=== PATIENT | male | born 1965 | race Hispanic/Latino ===

== ENCOUNTER 2019-04-17 14:01 | Emergency (ER) | payer SELFPAY ==
[2019-04-17 14:52] LABS: Protime INR 1.27
[2019-04-17 14:56] LABS: Absolute Lymphocytes (CBC) 0.7 K/uL (0.7-4.9); Basophils % 0.3 % (0-1.3); Hematocrit 39.4 % (39.6-49.0); Lymphocytes % 9.5 % (15.3-44.8); MPV 11.1 fL (7.6-11.3); RBC Red Blood Cell Count 4.24 M/uL (4.33-5.43)
[2019-04-17 15:18] LABS: ALT/SGPT 32 U/L (12-78); AST/SGOT 38 U/L (15-37); Albumin 2.3 g/dL (3.4-5.0); Alkaline Phosphatase 141 U/L (45-117); BUN Blood Urea Nitrogen 28 mg/dL (7-18); Bicarbonate 28 mmol/L (21-32); Bilirubin Direct 4.8 mg/dL (0-0.2); Glucose Level 113 mg/dL (74-106); Magnesium 2.7 mg/dL (1.8-2.4); NT PRO-BNP 198 pg/mL (<125); Potassium 4.1 mmol/L (3.5-5.1); Protein, Total 6.9 g/dL (6.4-8.2); Sodium Level 139 mmol/L (136-145); Troponin (Emerg Dept Use Only) < 0.02 ng/mL (0.0-0.045)
[2019-04-17 15:22] LABS: Bilirubin Total 6.3 mg/dL (0.2-1.0)
--- NOTE | 2019-04-17 15:31 | RAD REPORT ---
EXAM DESCRIPTION: RAD - Chest Single View - 04/17/2019 2:56 pm CLINICAL HISTORY: Shortness of breath, left-sided chest pain COMPARISON: None. TECHNIQUE: AP portable chest image was obtained 1445 hour . FINDINGS: Lung volumes are low. No focal lung parenchymal process. No pulmonary edema. Heart and vas culature are normal. No measurable pleural effusion and no pneumothorax. No acute bony abnormality se en. No acute aortic findings suspected. IMPRESSION: No acute cardiopulmonary process.
--- NOTE | 2019-04-17 16:44 | EDPHYS ---
Physician Documentation [facility] Name: Jayy Plascencia Age: 53 yrs Sex: Male : 1965 Arrival Date: 04/17/2019 Time: 14:03 Bed 28 Private MD: ED Physician Hiren Alvarez HPI: 04/17 16:25 This 53 yrs old Male presents to ER via Ambulatory with complaints of Chest gs Pain, Shortness Of Breath. 16:27 The patient or guardian reports chest pain that is located primarily in the anterior gs chest wall, left. Onset: yesterday. The pain does not radiate. Associated signs and symptoms: Pertinent negatives: abdominal pain, cough, palpitations, vomiting. The chest pain is described as sharp. Duration: The patient or guardian reports a single episode, that is still ongoing. Modifying factors: the symptoms are aggravated by movement, palpation of area, twisting torso. Severity of pain: At its worst the pain was moderate in the emergency department the pain has improved mildly. Historical: - Allergies: 14:11 No Known Allergies; hb - Home Meds: 14:11 spironolactone 25 mg Oral tab 1 tab every 2 days [Active]; furosemide 40 mg Oral tab hb [Active]; propranolol 10 mg Oral tab [Active]; - PMHx: 14:11 Cirrhosis; hb - PSHx: 14:11 None; hb - Immunization history:: Adult Immunizations up to date. - Social history:: Smoking status: Patient/guardian denies using tobacco. - Ebola Screening: : No symptoms or risks identified at this time. ROS: 16:27 All other systems are negative. gs Exam: 16:27 Head/Face: Normocephalic, atraumatic. ENT: Nares patent. No nasal discharge, no gs septal abnormalities noted. Tympanic membranes are normal and external auditory canals are clear. Oropharynx with no redness, swelling, or masses, exudates, or evidence of obstruction, uvula midline. Mucous membranes moist. Neck: Trachea midline, no thyromegaly or masses palpated, and no cervical lymphadenopathy. Supple, full range of motion without nuchal rigidity, or vertebral point tenderness. No Meningismus. Chest/axilla: Normal chest wall appearance and motion. Nontender with no deformity. No lesions are appreciated. Cardiovascular: Regular rate and rhythm with a normal S1 and S2. No gallops, murmurs, or rubs. Normal PMI, no JVD. No pulse deficits. Respiratory: Lungs have equal breath sounds bilaterally, clear to auscultation and percussion. No rales, rhonchi or wheezes noted. No increased work of breathing, no retractions or nasal flaring. Abdomen/GI: Soft, non-tender, with normal bowel sounds. No distension or tympany. No guarding or rebound. No evidence of tenderness throughout. Back: No spinal tenderness. No costovertebral tenderness. Full range of motion. Skin: Warm, dry with normal turgor. Normal color with no rashes, no lesions, and no evidence of cellulitis. MS/ Extremity: Pulses equal, no cyanosis. Neurovascular intact. Full, normal range of motion. Neuro: Awake and alert, GCS 15, oriented to person, place, time, and situation. Cranial nerves II-XII grossly intact. Motor strength 5/5 in all extremities. Sensory grossly intact. Cerebellar exam normal. Normal gait. 16:27 Constitutional: The patient appears alert, awake. 16:27 Eyes: Sclera: icterus. 16:27 ECG was reviewed by the Attending Physician. Vital Signs: 14:11 BP 109 / 81; Pulse 89; Resp 16; Temp 97.8; Pulse Ox 98% on R/A; Weight 95.25 kg; Height hb 5 ft. 8 in. (172.72 cm); Pain 9/10; 15:47 BP 102 / 70; Pulse 73; Resp 15; Pulse Ox 98% on R/A; tr5 16:52 BP 113 / 83; Pulse 80; Resp 15; Pulse Ox 99% on R/A; tr5 14:11 Body Mass Index 31.93 (95.25 kg, 172.72 cm) hb MDM: 16:20 Patient medically screened. gs 16:27 Differential diagnosis: acute myocardial infarction, coronary artery disease chest wall gs pain. Data reviewed: vital signs, nurses notes, lab test result(s), EKG, radiologic studies. Counseling: I had a detailed discussion with the patient and/or guardian regarding: the historical points, exam findings, and any diagnostic results supporting the discharge/admit diagnosis, lab results. Response to treatment: the patient's symptoms have resolved after treatment, the patient's pain is gone, the patient's condition has returned to base line. 04/17 14:24 Order name: Basic Metabolic Panel; Complete Time: 15:33 04/17 14:24 Order name: CBC with Diff gs 04/17 14:24 Order name: LFT's; Complete Time: 15:33 04/17 14:24 Order name: Magnesium; Complete Time: 15:33 04/17 14:24 Order name: NT PRO-BNP; Complete Time: 15:33 04/17 14:24 Order name: PT-INR; Complete Time: 15:22 04/17 14:24 Order name: Troponin (emerg Dept Use Only); Complete Time: 15:33 04/17 14:24 Order name: XRAY Chest (1 view); Complete Time: 15:47 04/17 14:24 Order name: EKG; Complete Time: 14:25 04/17 14:24 Order name: Cardiac monitoring; Complete Time: 14:31 04/17 14:24 Order name: EKG - Nurse/Tech; Complete Time: 14:38 04/17 14:24 Order name: IV Saline Lock; Complete Time: 14:38 04/17 14:24 Order name: Labs collected and sent; Complete Time: 14:38 04/17 14:24 Order name: O2 Per Protocol; Complete Time: 14:31 04/17 14:24 Order name: O2 Sat Monitoring; Complete Time: 14:31 gs EC:27 Rate is 92 beats/min. Rhythm is regular. MD interval is normal. QRS interval is normal. gs QT interval is normal. T waves are Flattened. No ST changes noted. Clinical impression: NSR w/ Non-specific ST/T Changes. Interpreted by me. Administered Medications: No medications were administered Disposition: 04/17/19 16:43 Discharged to Home. Impression: Chest pain, unspecified. - Condition is Stable. - Discharge Instructions: Nonspecific Chest Pain. - Prescriptions for Tramadol 50 mg Oral Tablet - take 0.5 tablet by ORAL route 2 times per day As needed as needed; 6 tablet. - Medication Reconciliation Form, Thank You Letter, Antibiotic Education, Prescription Opioid Use form. - Follow up: Private Physician; When: 2 - 3 days; Reason: Re-evaluation by your physician. Signatures: Dispatcher [employer] EDDena Hurst, RN RN Hiren Alvarez MD MD Lev Plascencia RN RN tr5 Corrections: (The following items were deleted from the chart) 17:18 16:43 04/17/2019 16:43 Discharged to Home. Impression: Chest pain, unspecified. tr5 Condition is Stable. Forms are Medication Reconciliation Form, Thank You Letter, Antibiotic Education, Prescription Opioid Use. Follow up: Private Physician; When: 2 - 3 days; Reason: Re-evaluation by your physician. gs
--- NOTE | 2019-04-17 16:44 | ER ---
Nurse's Notes [facility] Name: Jayy Plascencia Age: 53 yrs Sex: Male : 1965 Arrival Date: 04/17/2019 Time: 14:03 Bed 28 Private MD: Diagnosis: Chest pain, unspecified Presentation: 04/17 14:07 Presenting complaint: SOB and sharp left sided chest pain that radiates to left hb shoulder and arm that woke him from sleep yesterday morning. Transition of care: patient was not received from another setting of care. Onset of symptoms was April 16, 2019. Risk Assessment: Do you want to hurt yourself or someone else? Patient reports no desire to harm self or others. Initial Sepsis Screen: Does the patient meet any 2 criteria?. Care prior to arrival: None. 14:07 Method Of Arrival: Ambulatory hb 14:07 Acuity: CHANCE 3 hb 17:15 Initial Sepsis Screen: Does the patient have a suspected source of infection? No. tr5 Patient's initial sepsis screen is negative. Historical: - Allergies: 14:11 No Known Allergies; hb - Home Meds: 14:11 spironolactone 25 mg Oral tab 1 tab every 2 days [Active]; furosemide 40 mg Oral tab hb [Active]; propranolol 10 mg Oral tab [Active]; - PMHx: 14:11 Cirrhosis; hb - PSHx: 14:11 None; hb - Immunization history:: Adult Immunizations up to date. - Social history:: Smoking status: Patient/guardian denies using tobacco. - Ebola Screening: : No symptoms or risks identified at this time. Screenin:20 Abuse screen: Denies threats or abuse. Nutritional screening: No deficits noted. tr5 Tuberculosis screening: No symptoms or risk factors identified. Fall Risk None identified. Assessment: 14:20 General: Appears uncomfortable, Behavior is calm, cooperative, appropriate for age. tr5 Pain: Complains of pain in anterior aspect of left upper chest and left breast Pain radiates to left arm Quality of pain is described as aching, Pain began 1 day ago. Neuro: Level of Consciousness is awake, alert, obeys commands, Oriented to person, place, time, Director Of Informatics are equal bilaterally Moves all extremities. Cardiovascular: Heart tones present Capillary refill < 3 seconds Pulses are all present. Edema is absent. Respiratory: Reports shortness of breath at rest Airway is patent Respiratory effort is even, unlabored, Respiratory pattern is regular, symmetrical. GI: No signs and/or symptoms were reported involving the gastrointestinal system. : No signs and/or symptoms were reported regarding the genitourinary system. EENT: No signs and/or symptoms were reported regarding the EENT system. Derm: No signs and/or symptoms reported regarding the dermatologic system. Musculoskeletal: No signs and/or symptoms reported regarding the musculoskeletal system. 15:49 Reassessment: Patient appears in no apparent distress at this time. Patient and/or tr5 family updated on plan of care and expected duration. Pain level reassessed. Patient is alert, oriented x 3, equal unlabored respirations, skin warm/dry/pink. 16:52 Reassessment: Patient appears in no apparent distress at this time. Patient and/or tr5 family updated on plan of care and expected duration. Pain level reassessed. Patient is alert, oriented x 3, equal unlabored respirations, skin warm/dry/pink. Patient states feeling better. Vital Signs: 14:11 BP 109 / 81; Pulse 89; Resp 16; Temp 97.8; Pulse Ox 98% on R/A; Weight 95.25 kg; Height hb 5 ft. 8 in. (172.72 cm); Pain 9/10; 15:47 BP 102 / 70; Pulse 73; Resp 15; Pulse Ox 98% on R/A; tr5 16:52 BP 113 / 83; Pulse 80; Resp 15; Pulse Ox 99% on R/A; tr5 14:11 Body Mass Index 31.93 (95.25 kg, 172.72 cm) hb ED Course: 14:03 Patient arrived in ED. mr 14:09 Triage completed. hb 14:11 Arm band placed on. hb 14:14 EKG done, by roof service technician. reviewed by Hiren Alvarez MD. sm3 14:15 Hiren Alvarez MD is Attending Physician. gs 14:20 Placed in gown. Bed in low position. Call light in reach. lunchroom monitor on. Pulse ox tr5 on. NIBP on. 14:30 Lev Plascencia, EDILSON is Primary Nurse. tr5 14:37 Initial lab(s) drawn, by me, sent to lab. Inserted saline lock: 22 gauge in left lt1 antecubital area, using aseptic technique. 14:47 XRAY Chest (1 view) In Process Unspecified. EDMS 17:14 No provider procedures requiring assistance completed. Patient did not have IV access tr5 during this emergency room visit. Patient maintains SpO2 saturation greater than 95% on room air. Administered Medications: No medications were administered Outcome: 16:43 Discharge ordered by . marc 17:14 Discharged to home ambulatory, with family. tr5 17:14 Condition: stable 17:14 Discharge instructions given to patient, family, Instructed on discharge instructions, follow up and referral plans. medication usage, Demonstrated understanding of instructions, follow-up care, medications, Prescriptions given X 1. 17:18 Patient left the ED. tr5 Signatures: Dispatcher [employer] EDAR Myrtle Hazel Heather, RN RN Hiren Schulte MD MD gs Montes, Shakira 3 Radha Louie lt1 Lev Plascencia RN RN tr5
--- NOTE | 2019-04-17 17:13 | EKG ---
Test Date: 2019-04-17 Test Time: 14:11:13 Kitchen Utility Associate: DANG MEASUREMENT RESULTS: Intervals: Rate: 92 NC: 130 QRSD: 90 QT: 386 QTc: 477 [place]: P: -16 NC: 130 QRS: 34 T: -1 INTERPRETIVE STATEMENTS: Normal sinus rhythm Cannot rule out Anterior infarct, age undetermined Abnormal ECG No previous ECG available for comparison Electronically Signed On 04-17-19 17:12:40 CDT by Doyle Dick
[2019-04-17 17:38] VITALS: TEMP 97.8
[2019-04-17 17:41] VITALS: BP 113/83; O2SAT 99
[2019-04-17 19:16] LABS: Blood Morphology Comment NOT SEEN (NOT SEEN); Platelet Estimate DECR; Urine White Blood Cell Casts OK
== END 2019-04-17 17:18 | disposition home or self-care (01) ==
LOC: ER 14:01
DX: R07.9 Chest pain, unspecified (principal); K74.60 Unspecified cirrhosis of liver
CPT/HCPCS: 36415; 71045; 80048; 80076; 83735; 83880; 84484; 85025; 85610; 93005; 99285